=== PATIENT | female | born 1995 ===

== ENCOUNTER 2024-12-01 00:36 | Emergency (ER) | payer OTHER ==
[~2024-12-01] VITALS: Ht 167.6 cm; Wt 72.0 kg
[2024-12-01 00:46] VITALS: BP 122/81; PULSE 118; RESP 12; TEMP 98.4; O2SAT 95
[2024-12-01] MEDS: LIDOCAINE 1% 10 ML VIAL SQ ONE (02:04)
== END 2024-12-01 03:36 | disposition home or self-care (01) ==
LOC: EMS 00:36
DX: S61.411A Laceration without foreign body of right hand, initial encounter (principal); R45.851 Suicidal ideations; Z88.6 Allergy status to analgesic agent; W22.8XXA Striking against or struck by other objects, initial encounter; Y93.89 Activity, other specified; Y92.89 Other specified places as the place of occurrence of the external cause; Y99.8 Other external cause status
CPT/HCPCS: 99285; 12004; J3490; 12002